=== PATIENT | female | born 1940 | race Two or more races ===

== ENCOUNTER 2016-08-27 01:41 | Emergency (ER) | payer OTHER, MEDICAID ==
[~2016-08-27] VITALS: Ht 175.3 cm; Wt 81.6 kg
[~2016-08-27 01:41] MED LIST: ALBUAER3 IN; AML5T PO; ASPI81CH43 PO; AZI250T PO; BENZ100C97 PO; CARV6.2551 PO; FURO40TA PO; HYDR5CRE3 PR; INS7030I SC; INSREG3 IV; KETO0.4S RIGHTEYE; LEV50T PO; LOSA25TA8 PO; NOR5T PO; NYS5LQ MT; PANT40TA2 PO; POTA1TAB4 PO; SERT-135 PO; TRI05TP TOP
[2016-08-27] MEDS ORDERED: DEXTROSE 10% 1,000 ML IV ONE ×2 (02:00→04:00)
[2016-08-27 02:57] LABS: Basophils # (auto) 0 uL; Basophils % (auto) 0.1 % (0.0-2.0); DEFINITIVE VIEW TRANSMISSION; Eosinophils # (auto) 0.2 uL; Eosinophils % (auto) 2.3 % (0.0-7.0); Hematocrit 39.2 % (36.0-46.0); Hemoglobin 12.8 g/dL (12.2-16.2); Mean Corpuscular Hgb Conc. 32.6 g/dL (32.0-36.0); Mean Corpuscular Volume 92.1 fL (80.0-100.0); Mean Platelet Volume 7.7 fL (7.4-10.4); Monocytes # (auto) 0.5 uL; Monocytes % (auto) 5.3 % (0.0-12.0); Neutrophils # (auto) 7.4 uL; Neutrophils % (auto) 81.3 % (37.0-80.0); Platelet Count (auto) 356 10^3/uL (140-450); White Blood Cell 9.1 10^3/uL (4.4-10.8)
[2016-08-27 03:24] LABS: INR 1.12 (0.9-1.15); Partial Thromboplastin Time 26.4 sec (22.64-33.71); Prothrombin Time 11.5 sec (9.37-12.3)
[2016-08-27 03:27] LABS: Albumin 2.4 g/dL (3.4-5.0); Magnesium 1.7 mg/dL (1.6-2.6)
[2016-08-27 03:31] LABS: Potassium 2.7 mmol/L (3.5-5.1)
[2016-08-27 03:32] LABS: Bilirubin, Total 0.9 mg/dL (0.2-1.0); Total Protein 7.2 g/dL (6.4-8.2)
[2016-08-27 03:43] LABS: Anisocytosis Slight; Platelet Estimate Adequate
[2016-08-27] MEDS ORDERED: DEXTROSE (50%) 50ML SYRG IV ONE (04:00)
[2016-08-27 05:08] LABS: Urine Bilirubin Negative (Negative); Urine Blood Negative /uL (Negative); Urine Ca Oxalate Crystal FEW (None Seen); Urine Color Yellow (Yellow); Urine Glucose Normal (Normal); Urine Ketone Negative (Negative); Urine Mucus FEW (None Seen); Urine Nitrite Negative (Negative); Urine RBC 3 /hpf (0 - 4); Urine Squamous Epithelial Cell FEW /hpf (<5); Urine Urobilinogen Normal (Negative); Urine pH 7.5 (5.0-8.0)
[2016-08-27] MEDS ORDERED: POTASSIUM CHL 10% (20 MEQ/15ML) ORAL SOLN PO ONE ×2 (10:15→10:45)
[2016-08-27] MEDS ORDERED: POTASSIUM CHL 10 Meq TABLET PO ONE (10:45)
[2016-08-27 13:41] VITALS: BP 150/77
== END 2016-08-27 14:01 | disposition home or self-care (01) ==
LOC: EDUNIT# 01:41 → EDBD 01:41 → ER 01:41
DX: E11.649 Type 2 diabetes mellitus with hypoglycemia without coma (principal); I11.0 Hypertensive heart disease with heart failure; I50.9 Heart failure, unspecified; J44.9 Chronic obstructive pulmonary disease, unspecified; E78.5 Hyperlipidemia, unspecified; R41.82 Altered mental status, unspecified; E07.9 Disorder of thyroid, unspecified; Z90.49 Acquired absence of other specified parts of digestive tract; Z95.0 Presence of cardiac pacemaker; Z79.4 Long term (current) use of insulin; Z79.82 Long term (current) use of aspirin; Z88.1 Allergy status to other antibiotic agents
CPT/HCPCS: 36415; 70450; 71010; 80053; 81001; 82962; 83735; 84484; 85025; 85610; 85730; 93005; 94761; 96361; 96374; 99285; J7042